=== PATIENT | male | born 1980 | race Caucasian/White ===

== ENCOUNTER 2019-07-30 15:07 | Emergency (ER) | payer OTHER ==
[~2019-07-30] VITALS: Ht 188 cm; Wt 90.7 kg
[2019-07-30 15:16] VITALS: Ht 188 cm; Wt 90.7 kg
[2019-07-30 16:43] VITALS: BP 125/78
== END 2019-07-30 16:57 | disposition home or self-care (01) ==
LOC: ED 15:07
DX: T40.1X1A Poisoning by heroin, accidental (unintentional), initial encounter (principal); Y92.89 Other specified places as the place of occurrence of the external cause
CPT/HCPCS: Q0092